=== PATIENT | male | born 1955 | race African-American/Black ===

== ENCOUNTER 2019-01-11 10:41 | Inpatient (IN) ==
[2019-01-11 12:23] LABS: PT Patient Result 10.6 SECS; Partial Thromboplastin Time 24.4 SECS (0-40)
[2019-01-11 12:33] LABS: Alanine Aminotransferase 18 U/L (16-61); Albumin 4.2 G/DL (3.4-5.0); Alkaline Phosphatase 62 U/L (45-117); Aspartate Amino Transferase 17 U/L (0-37); Bilirubin,Total < 0.39 MG/DL (0.2-1.0); Blood Urea Nitrogen 12 MG/DL (7-18); Calcium 8.7 MG/DL (8.5-10.1); Glucose 93 MG/DL (74-106); Osmolality,Calculated 272.8 MOS/KG (273-304); Potassium 4.2 MMOL/L (3.5-5.1); Sodium 137 MMOL/L (136-145); Total Protein 8.2 G/DL (6.4-8.3)
[2019-01-11 12:35] LABS: Basophils % 0.5 % (0.0-0.8); Eosinophils % 0.5 % (0.00-10.9); Hemoglobin 12.4 GM/DL (14.0-18.0); Immature Granulocytes % 0.4 %; Immature Granulocytes Absolute 0.02 #; Lymphocytes # 2.1 10*3/uL (1.4-4.0); Lymphocytes % 38.4 % (21.2-54.2); Mean Corpuscular HGB Conc 30.2 GM/DL (32-36); Mean Corpuscular Hemoglobin 24 PG (27-34); Mean Corpuscular Volume 79.5 FL (87-102); Mean Platelet Volume 10.2 FL (9.6-12.0); Monocytes # 0.5 10*3/uL (0.11-0.8); Monocytes % 8.6 % (1.7-12.7); Neutrophils # 2.9 10*3/uL (1.4-7.4); Neutrophils % 51.6 % (38.7-73.9); Platelet Count 217 T/CUMM (130-400); Red Blood Count 5.16 MC/CUMM (3.8-5.5); Red Cell Distribution Width 15.5 % (9.3-17.3); White Blood Count 5.6 T/CUMM (4-12)
[2019-01-11] MEDS ORDERED: LABETALOL 20 MG/4 ML SYRINGE IV ONE ×2 (13:19→17:50)
[2019-01-11 13:30] LABS: Sedimentation Rate-Westergren 14 MM/HR (0-20)
[2019-01-11 13:49] LABS: Barbiturates Screen,Urine Negative (Negative); Benzodiazepines Screen,Urine Negative (Negative); Cannabinoid Screen,Urine Negative (Negative); Opiate Screen,Urine Negative (Negative); Phencyclidine Screen,Urine Negative (Negative)
[2019-01-11 16:40] LABS: Apearance,Urine CLEAR (Clear); Bilirubin,Urine Negative (Negative); Blood, Urine Small mg/dL (Negative); Glucose,Urine (UA) Negative (Negative); Ketones,Urine Negative (Negative); Mucus,Urine Occasional /LPF (Occasional); Nitrite,Urine Negative (Negative); Protein,Urine Negative; RBC,Urine 2 /HPF (0-4); Urine Color Straw (Yellow); Urine Specific Gravity 1.006 (1.001-1.035); Urine Urobilinogen < 2.0 EU/DL (0.2-1.0)
[2019-01-12 04:40] LABS: Basophils % 0.8 % (0.0-0.8); Hematocrit 38.5 VOL% (42.0-52.0); Hemoglobin 11.6 GM/DL (14.0-18.0); Immature Granulocytes % 0.2 %; Immature Granulocytes Absolute 0.01 #; Lymphocytes # 1.9 10*3/uL (1.4-4.0); Lymphocytes % 37.6 % (21.2-54.2); Mean Corpuscular HGB Conc 30.1 GM/DL (32-36); Mean Corpuscular Hemoglobin 24 PG (27-34); Mean Corpuscular Volume 79.5 FL (87-102); Monocytes # 0.5 10*3/uL (0.11-0.8); Neutrophils # 2.6 10*3/uL (1.4-7.4); Neutrophils % 51.4 % (38.7-73.9); Platelet Count 210 T/CUMM (130-400); Red Blood Count 4.84 MC/CUMM (3.8-5.5); Red Cell Distribution Width 15.4 % (9.3-17.3); White Blood Count 5.1 T/CUMM (4-12)
[2019-01-12 04:53] LABS: Calcium 8.8 MG/DL (8.5-10.1); Osmolality,Calculated 270.8 MOS/KG (273-304); Potassium 3.8 MMOL/L (3.5-5.1); Risk Ratio 3.87; Thyroid Stimulating Hormone 0.971 uIU/ml (0.358-3.74); VLDL CHOLESTEROL 18.8 MG/DL
[2019-01-12] MEDS ORDERED: amLODIPine 5 MG TABLET PO SCH (09:00)
[2019-01-12] MEDS ORDERED: LISINOPRIL 20 MG TABLET PO SCH (09:00)
[2019-01-12] MEDS ORDERED: ASPIRIN EC 81 MG TABLET PO SCH ×2 (09:00→14:20)
[2019-01-12] MEDS: PANTOPRAZOLE 40 MG TABLET PO SCH (09:52)
[2019-01-12] MEDS ORDERED: LABETALOL 20 MG/4 ML SYRINGE IV ONE (12:57)
[2019-01-12] MEDS ORDERED: ACETAMINOPHEN 325 MG TABLET PO PRN (14:16)
[2019-01-12] MEDS ORDERED: SUMAtriptan 25 MG TABLET PO PRN (14:16)
[2019-01-12] MEDS: LOSARTAN 50 MG TABLET PO SCH (15:13)
[2019-01-12] MEDS: CLOPIDOGREL 75 MG TABLET PO SCH (15:14)
[2019-01-12] MEDS: CARVEDILOL 3.125 MG TABLET PO SCH (20:37)
[2019-01-12] MEDS ORDERED: ATORVASTATIN 40 MG TABLET PO SCH (21:00)
[2019-01-13 04:05] LABS: Basophils # 0.1 10*3/uL (0.0-0.2); Basophils % 0.8 % (0.0-0.8); Hematocrit 37.7 VOL% (42.0-52.0); Hemoglobin 11.4 GM/DL (14.0-18.0); Immature Granulocytes % 0.2 %; Immature Granulocytes Absolute 0.01 #; Lymphocytes # 2.1 10*3/uL (1.4-4.0); Lymphocytes % 35.7 % (21.2-54.2); Mean Corpuscular HGB Conc 30.2 GM/DL (32-36); Mean Corpuscular Hemoglobin 24 PG (27-34); Mean Corpuscular Volume 78.4 FL (87-102); Mean Platelet Volume 9.8 FL (9.6-12.0); Monocytes # 0.6 10*3/uL (0.11-0.8); Monocytes % 9.5 % (1.7-12.7); Neutrophils # 3.2 10*3/uL (1.4-7.4); Neutrophils % 53.8 % (38.7-73.9); Platelet Count 218 T/CUMM (130-400); Red Blood Count 4.81 MC/CUMM (3.8-5.5); Red Cell Distribution Width 15.3 % (9.3-17.3)
[2019-01-13 04:25] LABS: Calcium 8.5 MG/DL (8.5-10.1); Potassium 3.9 MMOL/L (3.5-5.1)
[2019-01-13] MEDS: PANTOPRAZOLE 40 MG TABLET PO SCH (08:45)
[2019-01-13] MEDS: LOSARTAN 50 MG TABLET PO SCH (08:45)
[2019-01-13] MEDS: CARVEDILOL 3.125 MG TABLET PO SCH (08:45)
[2019-01-13] MEDS: CLOPIDOGREL 75 MG TABLET PO SCH (08:45)
[2019-01-13] MEDS ORDERED: ASPIRIN EC 325 MG TABLET PO SCH (09:00)
[2019-01-13 12:58] VITALS: BP 131/81
== END 2019-01-13 14:33 | disposition home or self-care (01) | DRG 66 ==
LOC: N.ED 10:41 → N.EDINP 14:01 → N.5E 17:27
PROVIDERS: ADMIT Internal Medicine; ATTEND Internal Medicine